=== PATIENT | male | born 1975 | race Caucasian/White ===

== ENCOUNTER → 2017-01-15 | Outpatient (CLI) | payer OTHER, SELFPAY ==
[2017-01-15 16:57] LABS: HEMATOCRIT 39.8 % (38.0-50.0); HEMOGLOBIN 13.7 gm/dL (13.0-16.0); MEAN CORPUSCULAR HGB CONC 34.5 g/dL (30-36); MEAN PLATELET VOLUME 9.2 FL (6.5-11.5); RED BLOOD COUNT 4.57 X10e (3.90-5.60); WHITE BLOOD COUNT 8.8 X10e3 (4.0-10.5)
[2017-01-15 17:03] LABS: ALBUMIN SERUM 3.8 g/dL (3.5-5.0); ALKALINE PHOSPHATASE 106 U/L (32-92); ALT (SGPT) 30 U/L (10-40); AMYLASE 16 U/L (0-46); AST (SGOT) 32 U/L (10-42); BILIRUBIN,TOTAL 0.6 mg/dL (0.2-2.0); CALCIUM SERUM 8.3 mg/dL (8.4-10.2); CARBON DIOXIDE 27 mmol/L (22-31); CHLORIDE 103 mmol/L (100-111); CREATININE SERUM 0.7 mg/dL (0.6-1.4); GLOM FILT RATE Estimated ABOVE60 mL/min (>60); GLUCOSE FASTING 108 mg/dL (70-110); POTASSIUM 3.6 mmol/L (3.5-5.1); PROTEIN TOTAL SERUM 7.7 g/dL (6.0-8.3); SODIUM 133 mmol/L (135-145); TRIGLYCERIDES 178 mg/dL (10-160)
[2017-01-15 17:06] LABS: BLOOD UREA NITROGEN <5 mg/dL (9-23); BUN/CREATININE RATIO 7.14
== END | disposition home or self-care (01) ==
LOC: CCHH 16:10
PROVIDERS: Internal Medicine Gastroenterology
DX: M79.602 Pain in left arm (principal); K50.90 Crohn's disease, unspecified, without complications
CPT/HCPCS: 80053; 82150; 82306; 83735; 84100; 84478; 85027